=== PATIENT | female | born 2000 | race Caucasian/White ===

== ENCOUNTER → 2021-07-02 | Outpatient (CLI) | payer OTHER ==
[~2021-07-02] MED LIST: ISOVUE-300 61% 50ML VIAL As Ordered ONE; PROHANCE 279.3MG/ML 5ML VIAL As Ordered ONE
--- NOTE | 2021-07-02 10:36 | REP ---
INDICATION: RT SHOULDER PAIN W/ INSTABILITY ? LABRUM TEAR. COMPARISON: None. TECHNIQUE: Coronal oblique T1, T2 fat sat, sagittal oblique T2 fat sat, axial T2 fat sat, gradient echo. Post arthrogram T1 fat sat and T2 fat sat in multiple planes. FINDINGS: Rotator cuff: There is tendinopathy/tendinitis of the supraspinatus and infraspinatus tendons, with no discrete tear. Acromioclavicular joint: Unremarkable. Acromion: Type 1 Biceps Tendon: In bicipital groove, no tenosynovitis. Hill Sach's deformity: None. Deltoid muscle: No abnormal signal. Biceps labral complex: Intact. Labrum: No tear. Cartilage: No defects. Bone marrow: No abnormal signal. Joint fluid: There is mild fluid in the subacromial bursa. IMPRESSION: There is tendinopathy/tendinitis of the supraspinatus and infraspinatus tendons, with no discrete tear. No evidence of a labral tear. Mild fluid in the subacromial bursa may represent an element of bursitis. <Electronically signed by Julio Ramos > 07/02/21 [id number]
--- NOTE | 2021-07-02 15:52 | REP ---
INDICATION: RT SHOULDER PAIN W/ INSTABILITY ? LABRUM TEAR. COMPARISON: None TECHNIQUE: The procedure was performed by FELICITAS Gomez, under the direct supervision of Dr. Ramos. The benefits and risks of the procedure were explained to the patient, and an informed consent was obtained. Directly prior to the start of the procedure, a formal time-out was completed in the procedure room. The right shoulder joint space was localized using fluoroscopic guidance. The skin was prepped and draped in a sterile fashion. Approximately 8 mL of 1% Lidocaine 10 mg/ml was used as a local anesthetic. Using fluoroscopic guidance, a #22 gauge spinal needle was inserted and advanced into the right shoulder joint space. Approximately 3 mL of Isovue 300 was injected to verify placement. Ten mL of a solution containing 20 mL of sterile saline and 0.15 mL of ProHance was injected into the joint space. The needle was removed and the patient was taken to MRI for post procedural imaging. FINDINGS: The patient tolerated the procedure well and there were no immediate complications. IMPRESSION: Technically successful right shoulder arthrogram with MRI imaging to follow. 0.1 minutes of fluoroscopy time was utilized for this procedure. Some fluoroscopic images are performed with last image hold technology. These images require no additional radiation. <Electronically signed by Kelly Dunham > 07/02/21 [id number] <Electronically signed by Julio Ramos > 07/02/21 [id number]
== END ==
LOC: M RADPRO 06:57
PROVIDERS: ATTEND Physician Assistant
DX: M75.21 Bicipital tendinitis, right shoulder (principal); M25.511 Pain in right shoulder
CPT/HCPCS: 23350; 73223; 77002; A9576; Q9967